=== PATIENT | male | born 1990 | race Caucasian/White ===

== ENCOUNTER 2016-05-02 13:38 | Emergency (ER) | payer OTHER ==
[2016-05-02 15:16] LABS: SPECIFIC GRAVITY 1.025 (1.001-1.030); URINE BILIRUBIN NEGATIVE (NEGATIVE); URINE BLOOD TRACE (NEGATIVE); URINE GLUCOSE (UA) NEGATIVE (NEGATIVE); URINE LEUKOCYTE ESTERASE NEGATIVE (NEGATIVE); URINE NITRITE NEGATIVE (NEGATIVE); URINE PROTEIN NEGATIVE (NEGATIVE); URINE UROBILINOGEN NORMAL (0-1 mg/dl)
[2016-05-02 15:18] LABS: ABSOLUTE NEUTROPHIL COUNT 4.4 K/mm3 (1.8-7.7); BASO # 0.1 K/mm3 (0.0-0.2); BASO % 0.6 % (0.2-1.0); EOS # 0.1 (0.0-0.5); EOS % 1.5 % (0.9-2.9); HEMATOCRIT 51.9 % (32.0-52.0); HEMOGLOBIN 16.6 gm/l (14.0-18.0); IMM NEUT # 0.1 K/mm3 (0-0.2); IMM NEUT% 0.8 % (0-1); LYMPH # 2.7 (1.0-4.8); LYMPH % 33.7 % (15-45); MEAN CELL VOLUME 88.9 fl (80.0-94.0); MEAN CORPUSCULAR HEMOGLOBIN 28.4 pg (27.0-31.0); MEAN PLATELET VOLUME 8.9 fl (7.4-10.4); MONO # 0.7 (0.0-0.8); MONO % 8.3 % (4-12); NEUT % 55.1 % (43-75); PLATELET COUNT 275 K/mm3 (130-400); URINE APPEARANCE CLEAR; URINE COLOR YELLOW
[2016-05-02 15:22] LABS: URINE BACTERIA RARE; URINE EPITHELIAL CELLS 0 /hpf; URINE RBC 0-2 /hpf; URINE WBC 0-1 /hpf
[2016-05-02 15:38] LABS: ALB/GLOB RATIO 1.4 (>1.0); ALBUMIN 4.7 gm/dL (3.5-5.7); CALCIUM 9.4 mg/dL (8.6-10.3)
--- NOTE | 2016-05-02 15:45 | US ---
Name: CHELLE LOUIS Exam: Scrotal ultrasound Comparison: None Clinical history: Left subdural scrotal pain Findings: Ultrasound scrotum was performed. Testicular size, shape, echogenicity and blood flow is symmetric and normal. There is no testicular mass or torsion. Microlithiasis is present. Epididymal heads are symmetric in size with the right 11 mm and left is 8 mm in greatest dimension. The tail of the left epididymis is somewhat heterogeneous and larger than the right and this is the area of concern as indicated by the patient. There is no hydrocele or varicocele. Impression: 1. No testicular mass or torsion 2. Findings most suspicious for epididymitis of the left epididymal tail 3. Microlithiasis Note: The above report was uploaded to [facility]'s electronic medical records system at 1541 hours.
== END 2016-05-02 17:07 | disposition home or self-care (01) ==
LOC: ED 13:38 → SUPCPDRO 13:38 → ED 17:07
DX: N45.1 Epididymitis (principal); F90.9 Attention-deficit hyperactivity disorder, unspecified type; F32.9 Major depressive disorder, single episode, unspecified; Z79.899 Other long term (current) drug therapy; Z88.5 Allergy status to narcotic agent